=== PATIENT | male | born 1960 | race Caucasian/White ===

== ENCOUNTER 2019-03-20 13:46 | Inpatient (IN) | payer BC, MEDICAID ==
[~2019-03-20] VITALS: Ht 175.3 cm; Wt 98.8 kg
[2019-03-20 14:34] LABS: BASOPHILS % (AUTO) 0.6 % (0-1); EOSINOPHILS # (AUTO) 0.4 X10'3 (0-0.9); HEMATOCRIT 29.7 % (42.0-52.0); HEMOGLOBIN 9.9 g/dl (14.0-17.9); LYMPHOCYTES # (AUTO) 1.1 X10'3 (1.1-4.8); LYMPHOCYTES % (AUTO) 14.5 % (21-51); MEAN CORPUSCULAR HGB CONC 33.4 g/dL (33.0-36.5); MEAN CORPUSCULAR VOLUME 89.7 FL (78-98); MEAN PLATELET VOLUME 6.3 FL (7.4-10.4); MONOCYTES # (AUTO) 0.6 X10'3 (0-0.9); MONOCYTES % (AUTO) 7.9 % (2-12); NEUTROPHILS # (AUTO) 5.2 X10'3 (1.8-7.7); PLATELET COUNT 365 X10'3 (140-440); RED BLOOD COUNT 3.31 X10'6 (4.70-6.10); RED CELL DISTRIBUTION WIDTH 15.2 % (11.5-14.5); WHITE BLOOD COUNT 7.3 X10'3 (4.5-11.0)
[2019-03-20 14:46] LABS: PARTIAL THROMBOPLASTIN TIME 34 SECONDS (22-32)
[2019-03-20 14:48] LABS: ALANINE AMINOTRANSFERASE 26 U/L (12-78); ALBUMIN 3.6 G/DL (3.4-5.0); ALKALINE PHOSPHATASE 61 IU/L (46-116); ANION GAP 8 (8-16); ASPARTATE AMINO TRANSFERASE 16 U/L (10-37); BILIRUBIN,TOTAL 0.4 MG/DL (0.1-1.0); BLOOD UREA NITROGEN 92 MG/DL (7-18); BUN/CREATININE RATIO 20.4 (5.4-32.0); CALCIUM 8.9 MG/DL (8.5-10.1); CHLORIDE 103 MMOL/L (99-107); GLUCOSE 288 MG/DL (70-104); SODIUM 131 MMOL/L (135-145); TOTAL CARBON DIOXIDE 19.9 MMOL/L (24-32); TOTAL PROTEIN 7.2 G/DL (6.4-8.2); eGFR 13 ML/MIN
[2019-03-20 14:59] LABS: POTASSIUM 6.9 MMOL/L (3.5-5.1)
[2019-03-20] MEDS ORDERED: dextrose 50%-water 50ml dispensing syringe IV ONE (15:00)
[2019-03-20] MEDS ORDERED: insulin regular, human 10 units/0.1 ml syringe IV ONE (15:00)
[2019-03-20] MEDS ORDERED: sodium bicarbonate (8.4%) 1 mEq/ml syringe IV ONE (15:00)
[2019-03-20] MEDS ORDERED: furosemide 40mg/4ml inj IV ONE (15:00)
[2019-03-20] MEDS ORDERED: calcium chloride 100 MG/1 ML inj IV ONE (15:00)
--- NOTE | 2019-03-20 15:02 | NUR ---
STILL UNABLE TO PROVIDE URINE AT THIS TIME.
--- NOTE | 2019-03-20 15:03 | NUR ---
RECEIVE ON BED AWAKE.
[2019-03-20] MEDS ORDERED: normal saline 1000ML IV soln IVB ONE (15:05)
--- NOTE | 2019-03-20 15:13 | NUR ---
SODIUM BICARB AND CALCIUM CHLORIDE NOT AVAILABLE.CALLED PHARMACY.
[2019-03-20] MEDS ORDERED: calcium chloride inj. 1,000 MG in normal saline 100ml IV soln 90 ML IV ONE (15:30)
[2019-03-20] MEDS ORDERED: SOTA120T PO (17:05)
[2019-03-20] MEDS ORDERED: CLON0.1T PO (17:05)
[2019-03-20] MEDS ORDERED: GLIP10TA11 PO (17:05)
[2019-03-20] MEDS ORDERED: LISI-600 PO (17:05)
[2019-03-20 17:07] LABS: CLARITY,URINE CLEAR (Clear); COLOR,URINE STRAW (Yellow); GLUCOSE, URINE 250 mg/dl (Neg); KETONES,URINE NEGATIVE (Neg); LEUKOCYTE ESTERASE ,URINE NEGATIVE (Neg); NITRITES, URINE NEGATIVE (Neg); OCCULT BLOOD,URINE NEGATIVE (Neg); PROTEIN,URINE NEGATIVE (Neg); UROBILINOGEN,URINE 0.2 E.U/dL (0.2-1.0)
[2019-03-20 17:11] LABS: UA COLLECTION TYPE VOIDED
[2019-03-20] MEDS ORDERED: FLUT16SP2 BOTHNARES (17:14)
[2019-03-20] MEDS ORDERED: DILT180C90 PO (17:14)
[2019-03-20] MEDS ORDERED: INSU100V9 SQ (17:14)
[2019-03-20] MEDS ORDERED: MONT10TA24 PO (17:14)
[2019-03-20] MEDS ORDERED: ASPI81TA30 PO (17:14)
[2019-03-20] MEDS ORDERED: OMEG-107 PO (17:14)
[2019-03-20] MEDS ORDERED: INSU100C10 SQ (17:14)
[2019-03-20] MEDS ORDERED: WARF-65 PO (17:14)
[2019-03-20] MEDS ORDERED: LINA5TAB4 PO (17:14)
[2019-03-20] MEDS ORDERED: acetaminophen 650mg rectal suppository RC PRN (17:15)
[2019-03-20] MEDS ORDERED: MESSAGE TO PHARMACY PO ONE (17:15)
[2019-03-20] MEDS ORDERED: diphenhydrAMINE 25mg capsule PO PRN (17:15)
[2019-03-20] MEDS ORDERED: magnesium Cl slow-release 64mg tablet PO PRN (17:15)
[2019-03-20] MEDS ORDERED: ondansetron/PF 4mg/2ml inj IV PRN (17:15)
[2019-03-20] MEDS ORDERED: sodium polystyrene sulfonate 15gm/60ml oral suspension PO ONE (17:15)
[2019-03-20] MEDS ORDERED: dextrose ORAL solution 15 GM/59 ML bottle PO PRN ×2 (17:15)
[2019-03-20] MEDS: K and/or MAG REPLACEMENT MC SCH (17:15)
[2019-03-20] MEDS ORDERED: HYDROcodone/acetaminophen 10/325mg tab PO PRN (17:15)
[2019-03-20] MEDS ORDERED: acetaminophen 325mg tablet PO PRN ×2 (17:15)
[2019-03-20] MEDS ORDERED: morphine 2 MG/ML inj. syringe IV PRN ×2 (17:15)
[2019-03-20] MEDS ORDERED: magnesium hydroxide 30ml (MOM) UD suspension PO PRN (17:15)
[2019-03-20] MEDS ORDERED: dextrose 50%-water 50ml dispensing syringe IV PRN ×2 (17:15)
[2019-03-20] MEDS ORDERED: HYDROcodone/acetaminophen 5mg/325mg tablet PO PRN (17:15)
[2019-03-20] MEDS ORDERED: magnesium 4gm in 100ml NS 100 ML IV PRN (17:15)
[2019-03-20] MEDS ORDERED: glucagon, human recombinant 1mg kit SUBCUT PRN (17:15)
[2019-03-20] MEDS ORDERED: mag hydrox/Alum hydrox/simeth 30ml oral suspension PO PRN (17:15)
[2019-03-20] MEDS ORDERED: potassium CL 10mEq/100ml bag 100 ML IV PRN ×2 (17:15)
[2019-03-20] MEDS ORDERED: magnesium 2GM in 50ml NS 50 ML IV PRN (17:15)
[2019-03-20] MEDS ORDERED: potassium Cl 20 mEq SR tablet PO PRN ×2 (17:15)
[2019-03-20] MEDS ORDERED: bisacodyl 10mg suppository rectal RC PRN (17:15)
[2019-03-20 17:44] LABS: POTASSIUM 5.6 MMOL/L (3.5-5.1)
[2019-03-20 17:48] LABS: HEMOGLOBIN A1C 11.5 % (4.5-6.2)
[2019-03-20] MEDS: normal saline 1000ml 1,000 ML IV SCH (18:09)
[2019-03-20] MEDS ORDERED: warfarin 1mg tablet PO ONE (21:00)
[2019-03-20] MEDS: insulin glargine (Lantus) pen - multi-dose SQ SCH (21:00)
[2019-03-20] MEDS ORDERED: temazepam 15mg capsule PO PRN (21:00)
[2019-03-20] MEDS: heparin, porcine 5000 units/ml vial SQ SCH (22:08)
[2019-03-20] MEDS: lisinopril 20mg tablet PO SCH (22:10)
[2019-03-20] MEDS: sotalol 80mg tablet PO SCH (22:11)
[2019-03-20 23:00] VITALS: BP 139/57
[2019-03-21] MEDS: normal saline 1000ml 1,000 ML IV SCH ×3 (01:12→17:32)
[2019-03-21 03:00] VITALS: BP 125/67
[2019-03-21 05:50] LABS: BASOPHILS % (AUTO) 0.6 % (0-1); EOSINOPHILS # (AUTO) 0.4 X10'3 (0-0.9); EOSINOPHILS % (AUTO) 5.3 % (0-6); HEMATOCRIT 28.6 % (42.0-52.0); HEMOGLOBIN 9.6 g/dl (14.0-17.9); LYMPHOCYTES # (AUTO) 1.1 X10'3 (1.1-4.8); LYMPHOCYTES % (AUTO) 15.5 % (21-51); MEAN CORPUSCULAR HEMOGLOBIN 30.4 PG (27.0-31.0); MEAN CORPUSCULAR HGB CONC 33.5 g/dL (33.0-36.5); MEAN PLATELET VOLUME 6.5 FL (7.4-10.4); MONOCYTES # (AUTO) 0.5 X10'3 (0-0.9); MONOCYTES % (AUTO) 7.8 % (2-12); NEUTROPHILS # (AUTO) 4.8 X10'3 (1.8-7.7); NEUTROPHILS % (AUTO) 70.8 % (42-75); PLATELET COUNT 356 X10'3 (140-440); RED BLOOD COUNT 3.15 X10'6 (4.70-6.10); RED CELL DISTRIBUTION WIDTH 15.2 % (11.5-14.5); WHITE BLOOD COUNT 6.8 X10'3 (4.5-11.0)
[2019-03-21 06:00] VITALS: BP 126/68
[2019-03-21 06:08] LABS: ALANINE AMINOTRANSFERASE 26 U/L (12-78); ALBUMIN 3.4 G/DL (3.4-5.0); ALKALINE PHOSPHATASE 57 IU/L (46-116); ANION GAP 8 (8-16); ASPARTATE AMINO TRANSFERASE 17 U/L (10-37); BILIRUBIN,TOTAL 0.5 MG/DL (0.1-1.0); BLOOD UREA NITROGEN 71 MG/DL (7-18); CALCIUM 8.5 MG/DL (8.5-10.1); CHLORIDE 110 MMOL/L (99-107); CHOL/HDL RATIO 6.4 (0.00-4.99); CHOLESTEROL 192 MG/DL (0-200); CREATININE 2.73 MG/DL (0.60-1.10); GLUCOSE 182 MG/DL (70-104); HDL CHOLESTEROL 30 MG/DL (35-60); LDL CHOLESTEROL 88 MG/DL (50-100); MAGNESIUM 2.2 MG/DL (1.5-2.4); PHOSPHORUS 4.1 MG/DL (2.3-4.5); POTASSIUM 5.3 MMOL/L (3.5-5.1); SODIUM 143 MMOL/L (135-145); TOTAL CARBON DIOXIDE 24.7 MMOL/L (24-32); TOTAL PROTEIN 6.8 G/DL (6.4-8.2); TRIGLYCERIDES 447 MG/DL (20-135); eGFR 24 ML/MIN
[2019-03-21] MEDS: K and/or MAG REPLACEMENT MC SCH (07:00)
[2019-03-21] MEDS: fluticasone nasal spray 16GM bottle NS SCH (07:11)
[2019-03-21] MEDS: aspirin 81mg tablet.DR PO SCH (07:11)
[2019-03-21] MEDS: omega-3 acid ethyl esters 1GM capsule PO SCH (07:11)
[2019-03-21] MEDS: cloNIDine 0.1 mg tablet PO SCH (07:11)
[2019-03-21] MEDS: sotalol 80mg tablet PO SCH ×2 (07:11→21:29)
[2019-03-21] MEDS: diltiazem CD 180mg cap (once-daily) PO SCH (07:11)
[2019-03-21] MEDS: montelukast 10mg tablet PO SCH (07:11)
[2019-03-21] MEDS: heparin, porcine 5000 units/ml vial SQ SCH ×2 (07:12→21:32)
[2019-03-21] MEDS ORDERED: non-formulary drug (Warfarin Sodium 1 TABLET) PO SCH (08:00)
[2019-03-21] MEDS: insulin Lispro (HumaLOG) vial - multi-dose SQ SCH ×3 (09:01→18:37)
[2019-03-21 11:00] VITALS: BP 103/61
--- NOTE | 2019-03-21 13:47 | NUR ---
DM consult: Patient with A1c 11.5. Noted that pt with elevated TG 477. Attempted visit with pt at bedside however pt sleeping and did not wake with verbal cues. Written High Triglycerides Nutrition Therapy and DM educations with referral to outpatient DM class and RD contact information left at bedside. Pt admit with acute renal failure, pending H&P. Pt currently on renal, heart healthy, CHO controlled diet documented with 50-75% PO intake. Lunch tray visible during RD visit noted to be greater than 75% consumed. [facility] 03/21. Will continue to follow. Recommendations: 1) Continue with renal heart healthy CHO controlled diet 2) Encourage PO intake 3) Monitor need for f/u education 4) Wt per rx Addendum: 03/21/19 at [address] Amended: Links added.
[2019-03-21 15:00] VITALS: BP 115/49
[2019-03-21 18:00] VITALS: BP 128/53
--- NOTE | 2019-03-21 18:13 | NUR ---
Problems reprioritized. Patient report given, questions answered & plan of care reviewed with NEVIN Metzger.
[2019-03-21] MEDS ORDERED: warfarin 5mg tablet PO ONE (21:00)
[2019-03-21] MEDS: lisinopril 20mg tablet PO SCH (21:31)
[2019-03-21] MEDS: insulin glargine (Lantus) pen - multi-dose SQ SCH (21:44)
[2019-03-21 22:00] VITALS: BP 106/77
[2019-03-22] MEDS: normal saline 1000ml 1,000 ML IV SCH ×3 (00:10→11:40)
[2019-03-22 02:00] VITALS: BP 157/159
[2019-03-22 02:10] VITALS: BP 136/57
[2019-03-22 05:42] LABS: BASOPHILS % (AUTO) 0.6 % (0-1); EOSINOPHILS # (AUTO) 0.1 X10'3 (0-0.9); EOSINOPHILS % (AUTO) 1.7 % (0-6); HEMATOCRIT 26.9 % (42.0-52.0); LYMPHOCYTES % (AUTO) 12.4 % (21-51); MEAN CORPUSCULAR HEMOGLOBIN 30.3 PG (27.0-31.0); MEAN CORPUSCULAR HGB CONC 33.4 g/dL (33.0-36.5); MEAN CORPUSCULAR VOLUME 90.7 FL (78-98); MEAN PLATELET VOLUME 6.5 FL (7.4-10.4); MONOCYTES # (AUTO) 0.4 X10'3 (0-0.9); MONOCYTES % (AUTO) 5.1 % (2-12); NEUTROPHILS # (AUTO) 6.2 X10'3 (1.8-7.7); NEUTROPHILS % (AUTO) 80.2 % (42-75); PLATELET COUNT 357 X10'3 (140-440); RED BLOOD COUNT 2.97 X10'6 (4.70-6.10); RED CELL DISTRIBUTION WIDTH 14.7 % (11.5-14.5); WHITE BLOOD COUNT 7.7 X10'3 (4.5-11.0)
[2019-03-22 05:50] LABS: ALANINE AMINOTRANSFERASE 24 U/L (12-78); ALBUMIN/GLOBULIN RATIO 0.9 (1.1-1.5); ALKALINE PHOSPHATASE 52 IU/L (46-116); ANION GAP 8 (8-16); ASPARTATE AMINO TRANSFERASE 17 U/L (10-37); BILIRUBIN,TOTAL 0.4 MG/DL (0.1-1.0); BLOOD UREA NITROGEN 43 MG/DL (7-18); CALCIUM 7.8 MG/DL (8.5-10.1); CHLORIDE 112 MMOL/L (99-107); CREATININE 1.59 MG/DL (0.60-1.10); GLUCOSE 232 MG/DL (70-104); MAGNESIUM 1.7 MG/DL (1.5-2.4); POTASSIUM 5.2 MMOL/L (3.5-5.1); SODIUM 142 MMOL/L (135-145); TOTAL PROTEIN 6.4 G/DL (6.4-8.2); eGFR 45 ML/MIN
[2019-03-22 06:00] VITALS: BP 115/49
--- NOTE | 2019-03-22 06:12 | NUR ---
Problems reprioritized. Patient report given, questions answered & plan of care reviewed with NEVIN Boyd. Patient stable at shift change
[2019-03-22] MEDS: K and/or MAG REPLACEMENT MC SCH (07:01)
[2019-03-22] MEDS: sotalol 80mg tablet PO SCH (08:38)
[2019-03-22] MEDS: aspirin 81mg tablet.DR PO SCH (08:39)
[2019-03-22] MEDS: montelukast 10mg tablet PO SCH (08:39)
[2019-03-22] MEDS: omega-3 acid ethyl esters 1GM capsule PO SCH (08:39)
[2019-03-22] MEDS: diltiazem CD 180mg cap (once-daily) PO SCH (08:39)
[2019-03-22] MEDS: cloNIDine 0.1 mg tablet PO SCH (08:40)
[2019-03-22] MEDS: heparin, porcine 5000 units/ml vial SQ SCH (08:42)
[2019-03-22] MEDS: fluticasone nasal spray 16GM bottle NS SCH (08:48)
[2019-03-22] MEDS: insulin Lispro (HumaLOG) vial - multi-dose SQ SCH ×2 (08:48→13:40)
[2019-03-22 11:00] VITALS: BP 126/54
--- NOTE | 2019-03-22 11:20 | NUR ---
Pt c/o pain in RLE after wound care dressing change. States pain is excruciating, ice pack provided, was not effective. Pt given [place] for pain, will reassess. Dr Eagle at patient bedside, requesting that upon discharge patient be given office numbers for Dr Quigley for surgical vascular consult as well as to contact either Dr Dowling's or Dr Chinchilla's medical offices for nephrology follow up. Please also include diabetes and cardiac education upon discharge. Primary RN notified of the aforementioned.
[2019-03-22] MEDS ORDERED: PENT400T17 PO (13:40)
--- NOTE | 2019-03-22 14:07 | NUR ---
PAGER ID: [phone] MESSAGE: [id number] Worthy: can you sign a work release form for him? NEVIN Boyd Ext [phone]
--- NOTE | 2019-03-22 15:43 | NUR ---
Discharge IV and tele off. Educated on meds and kidney injury. Stable for DC per MD.
[2019-03-22] MEDS ORDERED: warfarin 7.5mg tablet PO ONE (21:00)
== END 2019-03-22 15:45 | disposition home or self-care (01) | DRG 683 ==
LOC: ER 13:46 → ED HOLD 17:12 → PCU 3S 20:45
PROVIDERS: ADMIT Family Medicine; ATTEND Internal Medicine
DX: N17.0 Acute kidney failure with tubular necrosis (principal); E87.1 Hypo-osmolality and hyponatremia; L97.919 Non-pressure chronic ulcer of unspecified part of right lower leg with unspecified severity; D64.9 Anemia, unspecified; E11.42 Type 2 diabetes mellitus with diabetic polyneuropathy; E11.51 Type 2 diabetes mellitus with diabetic peripheral angiopathy without gangrene; E11.65 Type 2 diabetes mellitus with hyperglycemia; E78.00 Pure hypercholesterolemia, unspecified; E86.0 Dehydration; E87.5 Hyperkalemia; G47.30 Sleep apnea, unspecified; I10 Essential (primary) hypertension; I48.91 Unspecified atrial fibrillation; E11.622 Type 2 diabetes mellitus with other skin ulcer; L97.529 Non-pressure chronic ulcer of other part of left foot with unspecified severity; Z79.01 Long term (current) use of anticoagulants; Z91.041 Radiographic dye allergy status; Z80.0 Family history of malignant neoplasm of digestive organs; Z82.0 Family history of epilepsy and other diseases of the nervous system; Z87.442 Personal history of urinary calculi; Z87.891 Personal history of nicotine dependence; Z95.0 Presence of cardiac pacemaker
CPT/HCPCS: 36415; 71045; 80053; 80061; 81003; 82948; 83036; 83735; 84100; 84132; 84484; 85025; 85610; 85730; 87081; 93005; 93306; 96365; 96375; 99285; G0378; J1644; J1815; J1940; J7030

== ENCOUNTER 2019-10-20 01:45 | Emergency (ER) | payer MEDICAID ==
[~2019-10-20] VITALS: Ht 175.3 cm; Wt 98.2 kg
[~2019-10-20 01:45] MED LIST: ASPI81TA30 PO; CLON0.1T PO; DILT180C90 PO; FLUT16SP2 BOTHNARES; GLIP10TA11 PO; INSU100C10 SQ; INSU100V9 SQ; LINA5TAB4 PO; LISI-600 PO; MONT10TA26 PO; OMEG-107 PO; PENT400T17 PO; SOTA120T PO; WARF-65 PO
[2019-10-20] MEDS ORDERED: normal saline 1000ML IV soln IVB ONE (01:50)
[2019-10-20] MEDS ORDERED: iohexol 300mg/ml 100ml inj. ONE (02:33)
[2019-10-20] MEDS ORDERED: diltiazem 5mg/ml 5ml inj. IV ONE (02:50)
[2019-10-20 02:53] LABS: PARTIAL THROMBOPLASTIN TIME 37 SECONDS (22-32)
[2019-10-20 02:57] LABS: ALANINE AMINOTRANSFERASE 34 U/L (12-78); ALBUMIN 3.2 G/DL (3.4-5.0); ALBUMIN/GLOBULIN RATIO 0.9 (1.1-1.5); ALKALINE PHOSPHATASE 94 IU/L (46-116); ANION GAP 4 (8-16); ASPARTATE AMINO TRANSFERASE 31 U/L (10-37); BILIRUBIN,TOTAL 0.5 MG/DL (0.1-1.0); BLOOD UREA NITROGEN 25 MG/DL (7-18); BUN/CREATININE RATIO 14.4 (5.4-32.0); CALCIUM 8.9 MG/DL (8.5-10.1); CHLORIDE 106 MMOL/L (99-107); CREATININE 1.74 MG/DL (0.60-1.10); GLUCOSE 211 MG/DL (70-104); POTASSIUM 4.5 MMOL/L (3.5-5.1); SODIUM 140 MMOL/L (135-145); TOTAL CARBON DIOXIDE 30.1 MMOL/L (24-32); TOTAL PROTEIN 6.8 G/DL (6.4-8.2); eGFR 40 ML/MIN
[2019-10-20 03:00] LABS: BASOPHILS # (AUTO) 0.1 X10'3 (0-0.2); BASOPHILS % (AUTO) 0.8 % (0-1); EOSINOPHILS # (AUTO) 0.3 X10'3 (0-0.9); EOSINOPHILS % (AUTO) 3.6 % (0-6); HEMATOCRIT 27.4 % (42.0-52.0); HEMOGLOBIN 8.4 g/dl (14.0-17.9); LYMPHOCYTES % (AUTO) 11.7 % (21-51); MEAN CORPUSCULAR HEMOGLOBIN 23.4 PG (27.0-31.0); MEAN CORPUSCULAR HGB CONC 30.6 g/dL (33.0-36.5); MEAN CORPUSCULAR VOLUME 76.5 FL (78-98); MEAN PLATELET VOLUME 6.6 FL (7.4-10.4); MONOCYTES % (AUTO) 11.4 % (2-12); NEUTROPHILS # (AUTO) 6.2 X10'3 (1.8-7.7); NEUTROPHILS % (AUTO) 72.5 % (42-75); PLATELET COUNT 327 X10'3 (140-440); RED BLOOD COUNT 3.59 X10'6 (4.70-6.10); WHITE BLOOD COUNT 8.6 X10'3 (4.5-11.0)
[2019-10-20 03:03] LABS: MAGNESIUM 2.2 MG/DL (1.5-2.4)
[2019-10-20 03:25] VITALS: BP 157/84
[2019-10-20 03:30] LABS: CLARITY,URINE CLOUDY (Clear); GLUCOSE, URINE NEGATIVE (Neg); KETONES,URINE TRACE mg/dl (Neg); LEUKOCYTE ESTERASE ,URINE NEGATIVE (Neg); NITRITES, URINE NEGATIVE (Neg); OCCULT BLOOD,URINE LARGE (Neg); PH,URINE 6.5 (4.8-8.0); PROTEIN,URINE 100 mg/dl (Neg)
[2019-10-20 03:42] LABS: UA COLLECTION TYPE CLN CATCH MIDSTREAM
[2019-10-20 03:43] LABS: COLOR,URINE Red (Yellow)
[2019-10-20 03:44] LABS: BACTERIA,URINE FEW /HPF (Neg); RBC,URINE TNTC /HPF (0-2); SQUAMOUS EPITHELIAL CELL,UR FEW /LPF (FEW); WBC,URINE 0-4 /HPF (0-4)
== END 2019-10-20 03:47 | disposition home or self-care (01) ==
LOC: ER 01:46
DX: N02.9 Recurrent and persistent hematuria with unspecified morphologic changes (principal); R00.2 Palpitations; D64.9 Anemia, unspecified; K40.90 Unilateral inguinal hernia, without obstruction or gangrene, not specified as recurrent; N20.0 Calculus of kidney; I48.91 Unspecified atrial fibrillation; E11.42 Type 2 diabetes mellitus with diabetic polyneuropathy; I11.0 Hypertensive heart disease with heart failure; I50.9 Heart failure, unspecified; E78.00 Pure hypercholesterolemia, unspecified; G47.30 Sleep apnea, unspecified; Z86.2 Personal history of diseases of the blood and blood-forming organs and certain disorders involving the immune mechanism; Z95.0 Presence of cardiac pacemaker; Z98.890 Other specified postprocedural states; Z88.6 Allergy status to analgesic agent; Z79.82 Long term (current) use of aspirin; Z79.4 Long term (current) use of insulin; Z79.899 Other long term (current) drug therapy
CPT/HCPCS: 36415; 71045; 74176; 80053; 81001; 83735; 83880; 84484; 85025; 85610; 85730; 93005; 96374; 99285; J7030; Q9967; J3490

== ENCOUNTER 2019-11-04 05:18 | Day surgery (SDC) | payer MEDICAID ==
[2019-11-04] VITALS (8 sets, daily range): BP systolic 112–158; BP diastolic 64–88
[2019-11-04 06:02] LABS: BASOPHILS # (AUTO) 0.1 X10'3 (0-0.2); BASOPHILS % (AUTO) 0.7 % (0-1); EOSINOPHILS # (AUTO) 0.3 X10'3 (0-0.9); EOSINOPHILS % (AUTO) 4.5 % (0-6); HEMATOCRIT 27.6 % (42.0-52.0); HEMOGLOBIN 8.5 g/dl (14.0-17.9); LYMPHOCYTES # (AUTO) 1.1 X10'3 (1.1-4.8); LYMPHOCYTES % (AUTO) 13.9 % (21-51); MEAN CORPUSCULAR HEMOGLOBIN 23.3 PG (27.0-31.0); MEAN CORPUSCULAR HGB CONC 30.9 g/dL (33.0-36.5); MEAN CORPUSCULAR VOLUME 75.4 FL (78-98); MONOCYTES # (AUTO) 0.9 X10'3 (0-0.9); MONOCYTES % (AUTO) 11.6 % (2-12); NEUTROPHILS # (AUTO) 5.4 X10'3 (1.8-7.7); NEUTROPHILS % (AUTO) 69.3 % (42-75); PLATELET COUNT 349 X10'3 (140-440); RED BLOOD COUNT 3.66 X10'6 (4.70-6.10); RED CELL DISTRIBUTION WIDTH 17.6 % (11.5-14.5); WHITE BLOOD COUNT 7.8 X10'3 (4.5-11.0)
[2019-11-04 06:25] LABS: ALBUMIN 3.3 G/DL (3.4-5.0); ANION GAP 6 (8-16); BLOOD UREA NITROGEN 23 MG/DL (7-18); CALCIUM 8.9 MG/DL (8.5-10.1); CHLORIDE 105 MMOL/L (99-107); CREATININE 1.92 MG/DL (0.60-1.10); GLUCOSE 183 MG/DL (70-104); SODIUM 143 MMOL/L (135-145); eGFR 36 ML/MIN
[2019-11-04] MEDS ORDERED: AMIO200T61 PO (06:25)
[2019-11-04] MEDS ORDERED: COU4T PO (06:25)
[2019-11-04] MEDS ORDERED: VITA1TAB37 PO (06:25)
[2019-11-04] MEDS ORDERED: HYDR-4353 PO (06:25)
[2019-11-04] MEDS ORDERED: TORS100T15 PO (06:25)
[2019-11-04] MEDS ORDERED: MYCOL15CR TOP (06:25)
[2019-11-04] MEDS ORDERED: FENO145T38 PO (06:25)
[2019-11-04] MEDS ORDERED: GABA600T13 PO (06:25)
[2019-11-04] MEDS ORDERED: ERGO50002 PO (06:25)
[2019-11-04] MEDS ORDERED: DIGO125T PO (06:25)
[2019-11-04] MEDS ORDERED: WARF-113 PO (06:25)
[2019-11-04] MEDS ORDERED: POTA10TA10 PO (06:25)
[2019-11-04] MEDS ORDERED: pneumococcal 23-VAL P-sac vacc 25 mcg/0.5ml vial IMVAC ONE (10:00)
[2019-11-04] MEDS ORDERED: fentaNYL/PF 50MCG/1 ML 2ML syringe ONE (11:29)
[2019-11-04] MEDS ORDERED: midazolam 2 mg/2 ml injection ONE ×2 (11:29→11:56)
[2019-11-04] MEDS ORDERED: ceFAZolin 1000mg inj ONE ×2 (11:29→11:42)
[2019-11-04] MEDS ORDERED: LIDOcaine 1% W/epiNEPHrine 1:100,000 20ml vial ONE (11:29)
--- NOTE | 2019-11-04 11:40 | NUR ---
Pt left floor to go to procedure.
[2019-11-04] MEDS ORDERED: ceFAZolin/D5W- 1GM premix 50 ML IV SCH (20:00)
== END 2019-11-04 15:00 | disposition home or self-care (01) ==
LOC: SSTAY O 05:18
PROVIDERS: ATTEND Internal Medicine Interventional Cardiology
DX: Z45.010 Encounter for checking and testing of cardiac pacemaker pulse generator [battery] (principal); E11.22 Type 2 diabetes mellitus with diabetic chronic kidney disease; I12.0 Hypertensive chronic kidney disease with stage 5 chronic kidney disease or end stage renal disease; N18.3 Chronic kidney disease, stage 3 (moderate); G47.33 Obstructive sleep apnea (adult) (pediatric); I48.0 Paroxysmal atrial fibrillation; Z88.8 Allergy status to other drugs, medicaments and biological substances; Z87.442 Personal history of urinary calculi; Z79.01 Long term (current) use of anticoagulants; Z79.899 Other long term (current) drug therapy; Z79.82 Long term (current) use of aspirin; Z79.4 Long term (current) use of insulin
CPT/HCPCS: 33228; 36415; 80048; 82948; 85025; 85610; 93005; 99152; 99153; C1785; J0690; J2250; J3010; A4620

== ENCOUNTER 2020-04-27 14:16 | Day surgery (SDC) | payer MEDICAID ==
[~2020-04-27] VITALS: Ht 175.3 cm; Wt 109.5 kg
[2020-04-27] VITALS (17 sets, daily range): BP systolic 98–131; BP diastolic 53–81
[~2020-04-27 14:16] MED LIST changes: +AMIO200T61 PO; +COU4T PO; +DIGO125T PO; +ERGO50002 PO; +FENO145T38 PO; +GABA600T13 PO; +HYDR-4353 PO; +MYCOL15CR TOP; +POTA10TA10 PO; +TORS100T15 PO; +VITA1TAB37 PO; +WARF-113 PO; -WARF-65 PO
[2020-04-27] MEDS ORDERED: fentaNYL/PF 50MCG/1 ML 2ML syringe IV ONE (14:30)
[2020-04-27] MEDS ORDERED: MIDAZolam 1mg/ml 10ml vial IV ONE (14:30)
[2020-04-27] MEDS ORDERED: normal saline 1000ml 1,000 ML IV PRN (14:30)
[2020-04-27] MEDS ORDERED: MULT-1085 PO (15:07)
[2020-04-27] MEDS ORDERED: METO-411 PO (15:07)
[2020-04-27] MEDS ORDERED: GABA-530 PO (15:07)
[2020-04-27] MEDS ORDERED: ATOR40TA PO (15:07)
[2020-04-27] MEDS ORDERED: FLUT55AE (15:07)
[2020-04-27] MEDS ORDERED: FLUT1DIS20 INH (15:07)
[2020-04-27] MEDS ORDERED: Albuterol Sulfate IH (15:07)
[2020-04-27] MEDS ORDERED: INSU100I31 SQ (15:07)
[2020-04-27] MEDS ORDERED: WARF6TAB49 PO (15:07)
[2020-04-27] MEDS ORDERED: METH500T6 PO (15:14)
[2020-04-27] MEDS ORDERED: NITR0.4T51 SL (15:16)
== END 2020-04-27 19:50 | disposition home or self-care (01) ==
LOC: SSTAY O 14:16
PROVIDERS: ATTEND Internal Medicine Interventional Cardiology
DX: I48.0 Paroxysmal atrial fibrillation (principal); E11.22 Type 2 diabetes mellitus with diabetic chronic kidney disease; I12.9 Hypertensive chronic kidney disease with stage 1 through stage 4 chronic kidney disease, or unspecified chronic kidney disease; N18.9 Chronic kidney disease, unspecified; G47.33 Obstructive sleep apnea (adult) (pediatric); Z95.0 Presence of cardiac pacemaker; Z79.899 Other long term (current) drug therapy; Z79.82 Long term (current) use of aspirin; Z95.2 Presence of prosthetic heart valve; Z79.01 Long term (current) use of anticoagulants; Z87.442 Personal history of urinary calculi; Z88.8 Allergy status to other drugs, medicaments and biological substances; Z79.4 Long term (current) use of insulin
CPT/HCPCS: 71046; 92960; J2250; J3010; J7030